=== PATIENT | male | born 1990 | race Caucasian/White ===

== ENCOUNTER 2024-02-17 10:32 | Emergency (ER) | payer SELFPAY ==
[~2024-02-17] VITALS: Ht 172.7 cm; Wt 78.5 kg
[2024-02-17 10:41] VITALS: BP 123/79; PULSE 68; RESP 16; TEMP 97.8; O2SAT 98
[2024-02-17 11:15] VITALS: TEMP 97.8
[2024-02-17 12:02] LABS: ANION GAP 6.1 (8-16); CALCIUM 8.5 mg/dL (8.5-10.1); CARBON DIOXIDE 32.4 mmol/L (21-32); CREATININE 0.9 mg/dL (0.6-1.3); POTASSIUM 3.5 mmol/L (3.5-5.1)
[2024-02-17 12:21] LABS: BASOPHILS % (AUTO) 0.5 % (0.0-2.0); EOSINOPHILS # (AUTO) 0.6 K/uL (0-0.4); EOSINOPHILS % (AUTO) 7.4 % (0.0-4.0); HEMATOCRIT 48.6 % (36-52); HEMOGLOBIN 16.7 g/dL (12.0-18.0); LYMPHOCYTES # (AUTO) 2.8 K/uL (2.0-11.5); MEAN CORPUSCULAR HEMOGLOBIN 31 pg (27-31); MEAN CORPUSCULAR HGB CONC 34 g/dL (33-37); MEAN CORPUSCULAR VOLUME 88.7 fL (80-94); MONOCYTES # (AUTO) 0.6 K/uL (0.8-1.0); MONOCYTES % (AUTO) 7.5 % (1.7-9.3); NEUTROPHILS # (AUTO) 3.8 K/uL (1.8-7.7); NEUTROPHILS % (AUTO) 48.6 % (42.2-75.2); PLATELET COUNT (AUTO) 313 K/uL (140-450); RED BLOOD CELL COUNT(AUTO) 5.47 MIL/uL (4.20-6.10); RED CELL DISTRIBUTION WIDTH 13.1 % (11.6-13.7); WHITE BLOOD COUNT (AUTO) 7.7 K/uL (4.8-10.8)
[2024-02-17 13:12] VITALS: BP 128/74; PULSE 71; RESP 21; O2SAT 96
[2024-02-17] MEDS ORDERED: BACTO TP (13:53)
[2024-02-17] MEDS ORDERED: IBUP-2218 PO (13:53)
[2024-02-17] MEDS ORDERED: ACET500T99 PO (13:53)
== END 2024-02-17 14:22 | disposition home or self-care (01) ==
LOC: MED 10:32
DX: K65.9 Peritonitis, unspecified (principal); Z79.899 Other long term (current) drug therapy; Z98.890 Other specified postprocedural states
CPT/HCPCS: 36415; 72193; 80048; 85025; 99285; Q9967